=== PATIENT | male | born 1955 | race Caucasian/White ===

== ENCOUNTER 2020-06-17 09:09 | Outpatient (CLI) | payer OTHER, SELFPAY ==
[2020-06-17 09:31] LABS: Hematocrit 40.9 % (42.0-52.0); Mean Corpuscular HGB Conc 34.2 g/dl (32-36); Mean Corpuscular Hemoglobin 31.1 pg (26-34); Mean Corpuscular Volume 90.9 fl (80-100); Mean Platelet Volume 9.7 fl (7.4-10.4); Platelet Count Result 187 k/mm3 (150-375); Red Cell Distribution Width 12.7 % (11.5-14.5); White Blood Count 5.4 K/mm3 (4.5-10.0)
[2020-06-17 09:48] LABS: Alanine Aminotransferase 28 U/L (4-50); Albumin Level 4.4 g/dL (3.5-5.1); Alkaline Phosphatase 98 U/L (38-126); Aspartate Amino Transferase 36 U/L (17-59); Bilirubin,Total 0.4 mg/dL (0.2-1.3); Blood Urea Nitrogen 19 mg/dL (9-20); CRP < 0.5 mg/dL (<1.0); Calcium 9.5 mg/dL (8.4-10.2); Carbon Dioxide 26 mmol/L (22-30); Chloride 104 mmol/L (98-107); Estimated Glomerular Filt Rate > 60; Glucose 120 mg/dL (75-110); Potassium 4.4 mmol/L (3.4-5.0); Sodium 138 mmol/L (137-145)
[2020-06-17 10:30] LABS: Erythrocyte Sedimentation Rate 20 mm/hr (0-20)
== END 2020-06-17 09:10 | disposition home or self-care (01) ==
LOC: ANHLAB 09:14
PROVIDERS: Visit Provider Internal Medicine Gastroenterology
DX: K63.89 Other specified diseases of intestine (principal)
CPT/HCPCS: 36415; 80053; 85027; 85652; 86140

== ENCOUNTER 2020-07-20 00:16 | Outpatient (CLI) | payer OTHER, SELFPAY ==
[2020-07-20 19:30] LABS: SARS-CoV-2 RNA PCR Negative
== END 2020-07-20 00:17 | disposition home or self-care (01) ==
LOC: ANHCOVIDDT 00:17
PROVIDERS: Visit Provider Internal Medicine Gastroenterology
DX: Z01.812 Encounter for preprocedural laboratory examination (principal); Z20.828 Contact with and (suspected) exposure to other viral communicable diseases
CPT/HCPCS: 87635; C9803; U0003

== ENCOUNTER 2020-07-23 01:02 | Day surgery (SDC) | payer OTHER, SELFPAY ==
[2020-07-12 14:33] VITALS: BMI 28.8
[2020-07-23 10:17] VITALS: BP 154/91; PULSE 74; RESP 18; TEMP 36.5; O2SAT 97
[2020-07-23] MEDS: LACTATED RINGERS 1,000 ML 150 ML IV CONT (10:30)
--- NOTE | 2020-07-23 10:41 | P.PNAN_ITS ---
Anes - Initial Pre Proc Eval Procedure: Operation Date: 07/23/20 11:45 Proposed Procedures p Colonoscopy - Teddy Rodriguez MD Date/Time: 07/23/20 10:41 Surgeon: Teddy Rodriguez MD Pre Op Diagnosis: colitis Patient Data Age: 64 Gender: M Height: 5 ft 10 in Weight: 88.1 kg Last Vital Signs Temp 97.7 F 07/23/20 10:17 Pulse 74 07/23/20 10:17 Resp 18 07/23/20 10:17 BP 154/91 H 07/23/20 10:17 Pulse Ox 97 07/23/20 10:17 Allergies Allergy/AdvReac Type Severity Reaction Status Date / Time No Known Allergies Allergy Verified 07/23/20 10:10 Home Medications Medication Instructions Recorded Confirmed Type cetirizine 10 mg capsule 10 mg PO DAILY 05/23/20 07/23/20 History mesalamine [Lialda] 1.2 g PO 07/12/20 History mesalamine [Lialda] 1.2 g PO DAILY 07/12/20 07/12/20 History pravastatin 20 mg PO DAILY 07/12/20 07/12/20 History Patient hx anesthesia problems: none Family hx anesthesia problems: none [facility] Past Medical History Medical History (Updated 06/17/20 @ 08:56 by Teddy Rodriguez MD) Colon polyp Elevated blood-pressure reading, without diagnosis of hypertension Elevated glucose Hyperlipemia Left sided ulcerative (chronic) colitis Proctosigmoiditis Social History Social History Gender identity (if verbalized by the patient): Male Anes - Eval Final PreProcedure Day of Procedure 07/23/20 10:41 Patient weight: normal Heart: regular rate and rhythm Lungs: clear to auscultation Airway: Mallampati scale class II Neurological: alert and oriented Last oral intake: >/= 8 hours ASA classification: II Emergent: no Anesthetic plan: proceed Anesthesia type and monitoring: general and standard monitoring Informed Consent: The patient's anesthetic plan and its attendant risks and benefits were discussed with the patient/family/POA. Questions were solicited and answers provided to the satisfaction of the patient/family/POA.
--- NOTE | 2020-07-23 11:23 | PM.HPGS ---
History of Present Illness History of Present Illness Consent: Risks, benefits, and alternatives have been discussed and questions answered. Patient agrees to proceed with procedure. Chief complaint: colitis Narrative: Justus Rivera is a 64 year old male with proctosigmoiditis controlled with lialda, last colonoscopy 2018 Review of Systems Constitutional: Constitutional: Denies headache(s) and Denies weakness Eyes: Eyes: Denies blurry vision ENT: Reports Normal hearing present, Denies headache(s) and Denies neck pain Cardiovascular: Cardiovascular: Denies chest pain and Denies dyspnea Respiratory: Respiratory: Denies dyspnea Gastrointestinal: Gastrointestinal: Reports no additional gastrointestinal complaints Genitourinary: Genitourinary: Denies dysuria Musculoskeletal: Musculoskeletal: Denies neck pain Integumentary/Breasts: Skin/Breast: Denies dry skin Neurologic: Reports Normal hearing present, Denies headache(s) and Denies weakness Psychiatric: Psychiatric: Denies anxiety Endocrine: Endocrine: Denies change in body appearance Hematologic/Lymphatic: Hematologic/Lymphatic: Denies easy bleeding Allergic/Immunologic: Allergic/Immunologic: Denies urticaria PMFSH Past Medical History Medical History (Updated 06/17/20 @ 08:56 by Teddy Rodriguez MD) Colon polyp Elevated blood-pressure reading, without diagnosis of hypertension Elevated glucose Hyperlipemia Left sided ulcerative (chronic) colitis Proctosigmoiditis Social History Social History Gender identity (if verbalized by the patient): Male Meds Home Medications and Allergies Home Medications Medication Instructions Recorded Confirmed Type cetirizine 10 mg capsule 10 mg PO DAILY 05/23/20 07/23/20 History mesalamine [Lialda] 1.2 g PO 07/12/20 History mesalamine [Lialda] 1.2 g PO DAILY 07/12/20 07/12/20 History pravastatin 20 mg PO DAILY 07/12/20 07/12/20 History Allergies Allergy/AdvReac Type Severity Reaction Status Date / Time No Known Allergies Allergy Verified 07/23/20 10:10 Vital Signs Vital Signs - 24 hr 07/23/20 10:17 Temperature 97.7 F Pulse Rate 74 Respiratory Rate 18 Blood Pressure 154/91 H Pulse Oximetry 97 Exam Const: General: comfortable and no acute distress HENMT: General nose exam: Normal nares present Eyes: General: appearance normal, both eyes and all related structures Neck: Neck: no JVD Resp: Auscultation: clear to auscultation bilaterally Cardio: Rate: regular rate Rhythm: regular rhythm GI: Inspection: non-distended GI Palp: Yes Soft to palpation Skin: General skin exam: normal color Neuro: General: gait normal Speech: normal speech Extrem: General: normal to inspection Psych: Mental Status: mental status grossly normal Assessment and Plan Assessment and plan (1) Proctosigmoiditis: Code(s): K63.89 - Other specified diseases of intestine Status: Acute Assessment and Plan: will assess again with colonoscopy
[2020-07-23 11:45] VITALS: BP 97/57; PULSE 54; RESP 14; O2SAT 95
[2020-07-23 11:55] VITALS: BP 99/59; PULSE 54; RESP 14; O2SAT 98
[2020-07-23 12:05] VITALS: BP 108/59; PULSE 57; RESP 13; O2SAT 100
== END 2020-07-23 12:17 | disposition home or self-care (01) ==
PROVIDERS: PCP Family Medicine; Visit Provider Internal Medicine Gastroenterology
PROC: 0DJD8ZZ Inspection of Lower Intestinal Tract, Via Natural or Artificial Opening Endoscopic (ICD-10-PCS; CPT 45378; principal; 2020-07-23 11:45)
DX: K63.89 Other specified diseases of intestine (principal); E78.5 Hyperlipidemia, unspecified; K64.8 Other hemorrhoids; Z86.010 Personal history of colon polyps
CPT/HCPCS: 45378; J2704; J7120

== ENCOUNTER 2020-12-23 10:37 | Outpatient (CLI) | payer OTHER, SELFPAY ==
[2020-12-23 10:57] LABS: Hematocrit 41.4 % (42.0-52.0); Hemoglobin 13.7 g/dL (14.0-18.0); Mean Corpuscular HGB Conc 33.1 g/dl (32-36); Mean Corpuscular Hemoglobin 30.9 pg (26-34); Mean Corpuscular Volume 93.2 fl (80-100); Mean Platelet Volume 9.4 fl (7.4-10.4); Platelet Count Result 189 k/mm3 (150-375); Red Blood Count 4.44 M/mm3 (4.6-6.20); Red Cell Distribution Width 12.8 % (11.5-14.5); White Blood Count 6.3 K/mm3 (4.5-10.0)
[2020-12-23 11:11] LABS: Alanine Aminotransferase 38 U/L (4-50); Albumin Level 4.5 g/dL (3.5-5.1); Alkaline Phosphatase 101 U/L (38-126); Anion Gap 7 mmol/L (8-16); Aspartate Amino Transferase 44 U/L (17-59); Bilirubin,Total 0.4 mg/dL (0.2-1.3); Blood Urea Nitrogen 15 mg/dL (9-20); CRP < 0.5 mg/dL (<1.0); Calcium 9.4 mg/dL (8.4-10.2); Carbon Dioxide 31 mmol/L (22-30); Chloride 102 mmol/L (98-107); Estimated Glomerular Filt Rate > 60; Glucose 114 mg/dL (75-110); Potassium 4.2 mmol/L (3.4-5.0); Sodium 140 mmol/L (137-145)
[2020-12-23 11:20] LABS: Erythrocyte Sedimentation Rate 25 mm/hr (0-20)
== END 2020-12-23 10:38 | disposition home or self-care (01) ==
PROVIDERS: PCP Family Medicine; Visit Provider Nurse Practitioner Family
DX: K63.89 Other specified diseases of intestine (principal)
CPT/HCPCS: 36415; 80053; 85027; 85652; 86140

== ENCOUNTER 2020-12-25 14:07 | Outpatient (CLI) | payer OTHER, SELFPAY ==
[2021-01-01 20:51] LABS: Calprotectin, Stool 1020 mcg/g
== END 2020-12-25 14:08 | disposition home or self-care (01) ==
PROVIDERS: PCP Family Medicine; Visit Provider Nurse Practitioner Family
DX: K63.89 Other specified diseases of intestine (principal)
CPT/HCPCS: 83993; 87045; 87046; 87324; 87427

== ENCOUNTER 2021-09-01 09:43 | Outpatient (CLI) | payer OTHER, SELFPAY ==
[2021-09-01 10:12] LABS: Hematocrit 42.8 % (42.0-52.0); Hemoglobin 14.3 g/dL (14.0-18.0); Mean Corpuscular HGB Conc 33.4 g/dl (32-36); Mean Corpuscular Hemoglobin 31.8 pg (26-34); Mean Corpuscular Volume 95.1 fl (80-100); Mean Platelet Volume 9.8 fl (7.4-10.4); Platelet Count Result 209 k/mm3 (150-375); Red Cell Distribution Width 13.2 % (11.5-14.5); White Blood Count 5.6 K/mm3 (4.5-10.0)
[2021-09-01 10:13] LABS: Alanine Aminotransferase 26 U/L (4-50); Albumin Level 4.9 g/dL (3.5-5.1); Alkaline Phosphatase 103 U/L (38-126); Anion Gap 8 mmol/L (8-16); Aspartate Amino Transferase 33 U/L (17-59); Bilirubin,Total 0.4 mg/dL (0.2-1.3); Blood Urea Nitrogen 18 mg/dL (9-20); Calcium 9.6 mg/dL (8.4-10.2); Carbon Dioxide 29 mmol/L (22-30); Chloride 104 mmol/L (98-107); Estimated Glomerular Filt Rate > 60; Glucose 118 mg/dL (65-110); Potassium 4.5 mmol/L (3.4-5.0); Sodium 141 mmol/L (137-145)
== END 2021-09-01 09:44 | disposition home or self-care (01) ==
PROVIDERS: Visit Provider Nurse Practitioner Family
DX: K51.50 Left sided colitis without complications (principal)
CPT/HCPCS: 36415; 80053; 85027

== ENCOUNTER 2022-09-21 09:53 | Outpatient (CLI) | payer OTHER, SELFPAY ==
[2022-09-21 10:44] LABS: Hematocrit 41.5 % (42.0-52.0); Hemoglobin 13.7 g/dL (14.0-18.0); Mean Corpuscular Hemoglobin 30.7 pg (26-34); Mean Platelet Volume 9.4 fl (7.4-10.4); Platelet Count Result 266 k/mm3 (150-375); Red Blood Count 4.46 M/mm3 (4.6-6.20); Red Cell Distribution Width 12.9 % (11.5-14.5); White Blood Count 8.4 K/mm3 (4.5-10.0)
[2022-09-21 11:02] LABS: Alanine Aminotransferase 28 U/L (6-50); Albumin Level 4.9 g/dL (3.5-5.1); Alkaline Phosphatase 145 U/L (38-126); Anion Gap 13 mmol/L (8-16); Aspartate Amino Transferase 39 U/L (17-59); Bilirubin,Total 0.6 mg/dL (0.2-1.3); Blood Urea Nitrogen 26 mg/dL (9-20); CRP < 0.5 mg/dL (<1.0); Calcium 9.5 mg/dL (8.4-10.2); Carbon Dioxide 26 mmol/L (22-30); Chloride 99 mmol/L (98-107); Estimated Glomerular Filt Rate > 60; Glucose 105 mg/dL (65-110); Potassium 4.1 mmol/L (3.4-5.0); Sodium 138 mmol/L (137-145)
[2022-09-21 12:58] LABS: Erythrocyte Sedimentation Rate 22 mm/hr (0-20)
== END 2022-09-21 09:54 | disposition home or self-care (01) ==
LOC: ANHLAB 09:56
PROVIDERS: PCP Family Medicine; Visit Provider Nurse Practitioner Family
DX: R19.7 Diarrhea, unspecified (principal); K51.50 Left sided colitis without complications
CPT/HCPCS: 36415; 80053; 85027; 85652; 86140

== ENCOUNTER 2022-09-22 13:06 | Outpatient (CLI) | payer OTHER, SELFPAY ==
[2022-09-22 15:28] LABS: Toxigenic C. Diff NEGATIVE (NEGATIVE)
[2022-10-01 00:47] LABS: Calprotectin, Stool 4950 mcg/g
== END 2022-09-22 13:07 | disposition home or self-care (01) ==
LOC: ANHLAB 13:08
PROVIDERS: PCP Family Medicine; Visit Provider Nurse Practitioner Family
DX: R19.7 Diarrhea, unspecified (principal); K51.50 Left sided colitis without complications
CPT/HCPCS: 83993; 87493

== ENCOUNTER 2023-08-09 05:55 | Day surgery (SDC) | payer MEDICARE, SELFPAY ==
[2023-07-19 09:01] VITALS: BMI 27.5
[2023-08-09 06:20] VITALS: BP 129/83; PULSE 79; RESP 16; TEMP 36.6; O2SAT 100
--- NOTE | 2023-08-09 07:21 | P.PNAN_ITS ---
Anes - Initial Pre Proc Eval Procedure: Operation Date: 08/09/23 07:30 Proposed Procedures p Diagnostic Colonoscopy - Teddy Rodriguez MD Date/Time: 08/09/23 07:21 Surgeon: Teddy Rodriguez MD Pre Op Diagnosis: Other Specified Diseases of Intestines Patient Data Age: 67 Gender: M Height: 1.78 m Weight: 84 kg Allergies Allergy/AdvReac Type Severity Reaction Status Date / Time No Known Allergies Allergy Verified 08/09/23 06:19 Home Medications Medication Instructions Recorded Confirmed Type cetirizine 10 mg capsule (Zyrtec) 10 mg PO DAILY 05/23/20 08/09/23 History mesalamine 1,000 mg rectal 1 g RECTAL ONCE #30 ea 09/15/22 08/09/23 Rx suppository (Canasa) amlodipine 5 mg tablet 5 mg PO DAILY 09/21/22 08/09/23 History hydrochlorothiazide 12.5 mg capsule 12.5 mg PO DAILY 09/21/22 08/09/23 History mesalamine 1.2 gram tablet,delayed See Rx Instructions .Route 07/05/23 08/09/23 Rx release .COMPLEX #360 tabs pravastatin 20 mg tablet 20 mg PO DAILY 07/09/23 08/09/23 History multivitamin 1 tablet PO DAILY 07/21/23 08/09/23 History Patient hx anesthesia problems: none Family hx anesthesia problems: none Results Review: All pre-operative results and documents have been reviewed as part of the pre- operative evaluation. [facility] Past Medical History Medical History Colitis Colon polyp Elevated glucose Frequent loose stools Hyperlipemia Hypertension Left sided ulcerative (chronic) colitis Overweight (BMI 25.0-29.9) Proctosigmoiditis Surgical History Surgical History (Updated 08/09/23 @ 07:22 by Pravin Rangel MD) H/O colonoscopy Social History Social History Smoking status: Former smoker Tobacco type: cigarettes Alcohol intake: current Drinks per week: 2 Alcohol use details: couple drinks a month Substance use: never Substance use type: does not use Living arrangements: with family Gender identity (if verbalized by the patient): Male Spiritual care concerns: No Anes - Eval Final PreProcedure Day of Procedure 08/09/23 07:21 Patient weight: overweight Heart: regular rate and rhythm Lungs: clear to auscultation Airway: Mallampati scale class II Neurological: alert and oriented Last oral intake: >/= 8 hours ASA classification: II Emergent: no Anesthetic plan: proceed Anesthesia type and monitoring: general GIVS and standard monitoring Results Review: All pre-operative results and documents have been reviewed as part of the pre- operative evaluation. Informed Consent: The patient's anesthetic plan and its attendant risks and benefits were discussed with the patient/family/POA. Questions were solicited and answers provided to the satisfaction of the patient/family/POA.
[2023-08-09] MEDS: LACTATED RINGERS 1,000 ML 150 ML IV CONT (07:28)
--- NOTE | 2023-08-09 07:29 | PM.HPGS ---
History of Present Illness History of Present Illness Consent: Risks, benefits, and alternatives have been discussed and questions answered. Patient agrees to proceed with procedure. Chief complaint: Other Specified Diseases of Intestines Narrative: Justus Rivera is a 67 year old male with left sided UC since 2011 never on biologics, using mesalamine oral and supp, last round of steroids several months ago. His last colonoscopy was 06/2020 with only minimal erythema in the rectum, up to 5 cm from anal verge without erosions or exudates Review of Systems Constitutional: Constitutional: Denies headache(s) and Denies weakness Eyes: Eyes: Denies blurry vision ENT: Reports Normal hearing present, Denies headache(s) and Denies neck pain Cardiovascular: Cardiovascular: Denies chest pain and Denies dyspnea Respiratory: Respiratory: Denies dyspnea Gastrointestinal: Gastrointestinal: Reports no additional gastrointestinal complaints Genitourinary: Genitourinary: Denies dysuria Musculoskeletal: Musculoskeletal: Denies neck pain Integumentary/Breasts: Skin/Breast: Denies dry skin Neurologic: Reports Normal hearing present, Denies headache(s) and Denies weakness Psychiatric: Psychiatric: Denies anxiety Endocrine: Endocrine: Denies change in body appearance Hematologic/Lymphatic: Hematologic/Lymphatic: Denies easy bleeding Allergic/Immunologic: Allergic/Immunologic: Denies urticaria PMFSH Past Medical History Medical History Colitis Colon polyp Elevated glucose Frequent loose stools Hyperlipemia Hypertension Left sided ulcerative (chronic) colitis Overweight (BMI 25.0-29.9) Proctosigmoiditis Surgical History Surgical History (Updated 08/09/23 @ 07:22 by Pravin Rangel MD) H/O colonoscopy Social History Social History Smoking status: Former smoker Tobacco type: cigarettes Alcohol intake: current Drinks per week: 2 Alcohol use details: couple drinks a month Substance use: never Substance use type: does not use Living arrangements: with family Gender identity (if verbalized by the patient): Male Spiritual care concerns: No Meds Home Medications and Allergies Home Medications Medication Instructions Recorded Confirmed Type cetirizine 10 mg capsule (Zyrtec) 10 mg PO DAILY 05/23/20 08/09/23 History mesalamine 1,000 mg rectal 1 g RECTAL ONCE #30 ea 09/15/22 08/09/23 Rx suppository (Canasa) amlodipine 5 mg tablet 5 mg PO DAILY 09/21/22 08/09/23 History hydrochlorothiazide 12.5 mg capsule 12.5 mg PO DAILY 09/21/22 08/09/23 History mesalamine 1.2 gram tablet,delayed See Rx Instructions .Route 07/05/23 08/09/23 Rx release .COMPLEX #360 tabs pravastatin 20 mg tablet 20 mg PO DAILY 07/09/23 08/09/23 History multivitamin 1 tablet PO DAILY 07/21/23 08/09/23 History Allergies Allergy/AdvReac Type Severity Reaction Status Date / Time No Known Allergies Allergy Verified 08/09/23 06:19 Vital Signs Vital Signs - 24 hr 08/09/23 06:20 Temperature 97.9 F Pulse Rate 79 Respiratory Rate 16 Blood Pressure 129/83 Pulse Oximetry 100 Oxygen Delivery Room Air Exam Const: General: comfortable and no acute distress HENMT: Face/Nose/Sinus: Normal nares present Eyes: General: appearance normal, both eyes and all related structures Neck: Neck: no JVD Resp: Auscultation: clear to auscultation bilaterally Cardio: Rate: regular rate Rhythm: regular rhythm GI: Inspection: non-distended GI Palp: Yes Soft to palpation Skin: General skin exam: normal color Neuro: General: gait normal Speech: normal speech Extrem: General: normal to inspection Psych: Mental Status: mental status grossly normal Assessment and Plan Assessment and plan (1) Left sided ulcerative (chronic) colitis: Code(s): K51.50 - Left sided colitis without complications Sta
[2023-08-09 07:50] VITALS: BP 102/82; PULSE 62; RESP 16; O2SAT 98
[2023-08-09 08:00] VITALS: BP 111/69; PULSE 67; RESP 18; O2SAT 98
[2023-08-09 08:10] VITALS: BP 107/83; PULSE 71; RESP 18; O2SAT 99
--- NOTE | 2023-08-09 08:12 | WPDANESPN ---
Anes - Prog Note Post-Op Date/Time: 08/09/23 08:12 Cardiovascular status: normal Respiratory status: normal Airway patency: baseline Mental status: baseline Post-Op hydration status: normal Vital Signs: Last Vital Signs Temp 36.6 C 08/09/23 06:20 Pulse 62 08/09/23 07:50 Resp 16 08/09/23 07:50 BP 102/82 08/09/23 07:50 Pulse Ox 98 08/09/23 07:50 O2 Del Method Room Air 08/09/23 07:50 Pain Score (VAS): 0/10 I/O: Intake & Output 08/08/23 08/09/23 08/09/23 23:59 07:59 15:59 Intake Total 400 Balance 400 Patient Feedback: Patient satisfied with anesthetic care.
== END 2023-08-09 08:21 | disposition home or self-care (01) ==
PROVIDERS: Visit Provider Internal Medicine Gastroenterology
PROC: 0DJD8ZZ Inspection of Lower Intestinal Tract, Via Natural or Artificial Opening Endoscopic (ICD-10-PCS; CPT 45378; principal; 2023-08-09 07:30)
DX: Z12.11 Encounter for screening for malignant neoplasm of colon (principal); K64.5 Perianal venous thrombosis
CPT/HCPCS: 45380

== ENCOUNTER 2023-08-09 08:00 | Outpatient (NON) | payer MEDICARE, SELFPAY | END 2023-08-09 08:01 | disposition home or self-care (01) | LOC: ANHLAB 08-10 09:26 | PROVIDERS: Visit Provider Internal Medicine Gastroenterology | DX: K51.50 Left sided colitis without complications (principal) | CPT/HCPCS: 88305 ==

== ENCOUNTER 2023-12-01 12:07 | Outpatient (CLI) | payer MEDICARE, SELFPAY ==
[2023-12-01 12:44] LABS: Hematocrit 42.2 % (42.0-52.0); Hemoglobin 13.7 g/dL (14.0-18.0); Mean Corpuscular HGB Conc 32.5 g/dl (32-36); Mean Corpuscular Hemoglobin 30.4 pg (26-34); Mean Corpuscular Volume 93.6 fl (80-100); Mean Platelet Volume 9.7 fl (7.4-10.4); Platelet Count Result 179 k/mm3 (150-375); Red Blood Count 4.51 M/mm3 (4.6-6.20); Red Cell Distribution Width 13.1 % (11.5-14.5); White Blood Count 4.8 K/mm3 (4.5-10.0)
[2023-12-01 13:03] LABS: Alanine Aminotransferase 29 U/L (6-50); Albumin Level 4.7 g/dL (3.5-5.1); Alkaline Phosphatase 98 U/L (38-126); Anion Gap 10 mmol/L (8-16); Aspartate Amino Transferase 35 U/L (17-59); Bilirubin,Total 0.5 mg/dL (0.2-1.3); Blood Urea Nitrogen 24 mg/dL (9-20); CRP < 0.5 mg/dL (<1.0); Calcium 9.4 mg/dL (8.4-10.2); Carbon Dioxide 28 mmol/L (22-30); Chloride 102 mmol/L (98-107); Estimated Glomerular Filt Rate > 60; Glucose 104 mg/dL (65-110); Potassium 4.3 mmol/L (3.4-5.0); Sodium 140 mmol/L (137-145)
[2023-12-01 13:28] LABS: Erythrocyte Sedimentation Rate 22 mm/hr (0-20)
== END 2023-12-01 12:08 | disposition home or self-care (01) ==
PROVIDERS: PCP Family Medicine; Visit Provider Nurse Practitioner Family
DX: K51.50 Left sided colitis without complications (principal)
CPT/HCPCS: 36415; 80053; 85027; 85652; 86140

== ENCOUNTER 2024-02-03 11:37 | Outpatient (CLI) | payer MEDICARE, SELFPAY ==
[2024-02-03 11:58] LABS: Hematocrit 41.5 % (42.0-52.0); Hemoglobin 13.8 g/dL (14.0-18.0); Mean Corpuscular HGB Conc 33.3 g/dl (32-36); Mean Corpuscular Hemoglobin 30.8 pg (26-34); Mean Corpuscular Volume 92.6 fl (80-100); Mean Platelet Volume 9.4 fl (7.4-10.4); Platelet Count Result 180 k/mm3 (150-375); Red Blood Count 4.48 M/mm3 (4.6-6.20); Red Cell Distribution Width 12.9 % (11.5-14.5); White Blood Count 5.1 K/mm3 (4.5-10.0)
[2024-02-03 12:16] LABS: Alanine Aminotransferase 32 U/L (6-50); Albumin Level 4.8 g/dL (3.5-5.1); Alkaline Phosphatase 107 U/L (38-126); Anion Gap 5 mmol/L (8-16); Aspartate Amino Transferase 42 U/L (17-59); Bilirubin,Total 0.7 mg/dL (0.2-1.3); Blood Urea Nitrogen 21 mg/dL (9-20); CRP < 0.5 mg/dL (<1.0); Calcium 9.6 mg/dL (8.4-10.2); Carbon Dioxide 31 mmol/L (22-30); Chloride 104 mmol/L (98-107); Estimated Glomerular Filt Rate > 60; Glucose 104 mg/dL (65-110); Potassium 4.1 mmol/L (3.4-5.0); Sodium 140 mmol/L (137-145)
[2024-02-03 12:35] LABS: Erythrocyte Sedimentation Rate 21 mm/hr (0-20)
== END 2024-02-03 11:38 | disposition home or self-care (01) ==
LOC: ANHLAB 11:40
PROVIDERS: Visit Provider Nurse Practitioner
DX: K51.50 Left sided colitis without complications (principal)
CPT/HCPCS: 36415; 80053; 85027; 85652; 86140

== ENCOUNTER 2024-02-04 10:26 | Outpatient (CLI) | payer MEDICARE, SELFPAY ==
[2024-02-11 03:16] LABS: Calprotectin, Stool 241 mcg/g
== END 2024-02-04 10:27 | disposition home or self-care (01) ==
LOC: ANHLAB 10:28
PROVIDERS: Visit Provider Nurse Practitioner
DX: K51.50 Left sided colitis without complications (principal)
CPT/HCPCS: 83993

== ENCOUNTER 2024-08-17 11:52 | Outpatient (CLI) | payer MEDICARE, SELFPAY ==
[2024-08-17 12:39] LABS: Hematocrit 44.4 % (42.0-52.0); Hemoglobin 14.5 g/dL (14.0-18.0); Mean Corpuscular HGB Conc 32.7 g/dl (32-36); Mean Corpuscular Hemoglobin 30.4 pg (26-34); Mean Corpuscular Volume 93.1 fl (80-100); Mean Platelet Volume 9.9 fl (7.4-10.4); Platelet Count Result 190 k/mm3 (150-375); Red Blood Count 4.77 M/mm3 (4.6-6.20); Red Cell Distribution Width 13.1 % (11.5-14.5); White Blood Count 4.8 K/mm3 (4.5-10.0)
[2024-08-17 12:53] LABS: Alanine Aminotransferase 25 U/L (6-50); Albumin Level 5.1 g/dL (3.5-5.1); Alkaline Phosphatase 101 U/L (38-126); Anion Gap 10 mmol/L (4-12); Aspartate Amino Transferase 36 U/L (17-59); Bilirubin,Total 0.6 mg/dL (0.2-1.3); Blood Urea Nitrogen 23 mg/dL (9-20); CRP 0.5 mg/dL (<1.0); Calcium 9.6 mg/dL (8.4-10.2); Carbon Dioxide 29 mmol/L (22-30); Chloride 95 mmol/L (98-107); Estimated Glomerular Filt Rate > 60; Glucose 107 mg/dL (65-110); Potassium 4.3 mmol/L (3.4-5.0); Sodium 134 mmol/L (137-145)
[2024-08-17 13:19] LABS: Erythrocyte Sedimentation Rate 14 mm/hr (0-20)
[2024-08-17 13:23] LABS: Iron 109 ug/dL (49-181)
[2024-08-17 13:33] LABS: Percent Iron Saturation 31 % (20-50)
[2024-08-17 20:14] LABS: Folic Acid > 20.0 ng/mL (2.76->20)
== END 2024-08-17 11:53 | disposition home or self-care (01) ==
LOC: ANHLAB 11:57
PROVIDERS: Visit Provider Nurse Practitioner
DX: K51.50 Left sided colitis without complications (principal)
CPT/HCPCS: 36415; 80053; 82607; 82728; 82746; 83540; 83550; 85027; 85652; 86140

== ENCOUNTER 2024-08-18 09:57 | Outpatient (CLI) | payer MEDICARE, SELFPAY ==
[2024-08-25 18:52] LABS: Calprotectin, Stool 123 mcg/g
== END 2024-08-18 09:58 | disposition home or self-care (01) ==
LOC: ANHLAB 09:58
PROVIDERS: Visit Provider Nurse Practitioner
DX: K51.50 Left sided colitis without complications (principal)
CPT/HCPCS: 83993

== ENCOUNTER 2025-02-14 10:04 | Outpatient (CLI) | payer MEDICARE, SELFPAY ==
[2025-02-14 11:06] LABS: Alanine Aminotransferase 32 U/L (6-50); Albumin Level 4.9 g/dL (3.5-5.1); Alkaline Phosphatase 108 U/L (38-126); Anion Gap 11 mmol/L (4-12); Aspartate Amino Transferase 41 U/L (17-59); Bilirubin,Total 0.6 mg/dL (0.2-1.3); Blood Urea Nitrogen 31 mg/dL (9-20); CRP 0.8 mg/dL (<1.0); Calcium 9.6 mg/dL (8.4-10.2); Carbon Dioxide 29 mmol/L (22-30); Chloride 100 mmol/L (98-107); Estimated Glomerular Filt Rate > 60; Glucose 111 mg/dL (65-110); Potassium 4.7 mmol/L (3.4-5.0); Sodium 140 mmol/L (137-145)
--- OUTSIDE RECORDS SUMMARY | 2025-02-14 11:25 | XMS_ITS | Clinical Summary ---
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 Role Phone Unavailable Primary Care Provider Unavailabl e Social History Tobacco Use Types Packs/Day Years Used Date Smoking Tobacco: Never Assessed Sex and Gender Information Value Date Recorded Sex Assigned at Not on file Legal Sex Male 9:12 PM [employer] Gender Identity Not on file Sexual Orientation Not on file Plan of Treatment Health Maintenance Due Date Last Done Comments Colorectal Cancer Screening Colonoscopy (10 Years) 1955 Hepatitis C 1973 DTaP, Tdap and Td Vaccines ( 1 - Tdap) 1974 Zoster Vaccines (1 of 2) 2005 Pneumococcal Vaccine: 65+ Ye ars (1 of 1 - PCV) 2020 COVID-19 Vaccine ( - 2023-2 5 season) 2024 Influenza Adult (#1) 2024 RSV Immunization or 60+ Years (1 - 1-dose 75+ series) 2030 Meningococcal B Vaccine Aged Out No l onger eligible based on patient's age to complete this topic Meningococcal Vaccine Aged Out No kayden jagruti eligible based on patient's age to complete this topic RSV Immunizations Under 20 Months Aged Out No longer eligible based on patient's age to complete this topic
[2025-02-14 11:34] LABS: Erythrocyte Sedimentation Rate 19 mm/hr (0-20)
== END 2025-02-14 10:05 | disposition home or self-care (01) ==
LOC: ANHLAB 10:06
PROVIDERS: Visit Provider Nurse Practitioner
DX: K51.50 Left sided colitis without complications (principal)
CPT/HCPCS: 36415; 80053; 85652; 86140

== ENCOUNTER 2025-02-15 09:46 | Outpatient (CLI) | payer MEDICARE, SELFPAY ==
--- OUTSIDE RECORDS SUMMARY | 2025-02-15 10:16 | XMS_ITS | Clinical Summary ---
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
== END 2025-02-15 09:47 | disposition home or self-care (01) ==
LOC: ANHLAB 09:46
PROVIDERS: Visit Provider Nurse Practitioner
DX: K51.50 Left sided colitis without complications (principal)
CPT/HCPCS: 83993

== ENCOUNTER 2025-08-14 10:01 | Outpatient (CLI) | payer MEDICARE, SELFPAY ==
[2025-08-14 10:16] LABS: Hematocrit 41.3 % (37.0-46.0); Hemoglobin 13.7 g/dL (12.4-15.3); Mean Corpuscular HGB Conc 33.2 g/dL (32-36); Mean Corpuscular Hemoglobin 30.6 pg (27.0-31.0); Mean Corpuscular Volume 92.2 fL (78.0-102.0); Platelet Count Result 161 K/mm3 (150-420); Red Blood Count 4.48 M/mm3 (4.70-6.10); White Blood Count 4.8 K/mm3 (4.8-10.8)
[2025-08-14 10:49] LABS: Iron 107 ug/dL (49-181)
[2025-08-14 10:53] LABS: Alanine Aminotransferase 32 U/L (6-50); Albumin Level 4.8 g/dL (3.5-5.1); Alkaline Phosphatase 120 U/L (38-126); Anion Gap 11 mmol/L (4-12); Aspartate Amino Transferase 41 U/L (17-59); Bilirubin,Total 0.6 mg/dL (0.2-1.3); Blood Urea Nitrogen 21 mg/dL (9-20); CRP 0.6 mg/dL (<1.0); Calcium 9.7 mg/dL (8.4-10.2); Carbon Dioxide 30 mmol/L (22-30); Chloride 102 mmol/L (98-107); Estimated Glomerular Filt Rate > 60; Glucose 103 mg/dL (65-110); Osmolality Calculated 299 mOsm/kg (285-295); Potassium 4.5 mmol/L (3.4-5.0); Sodium 143 mmol/L (137-145); Total Protein 9.7 g/dL (6.3-8.2)
[2025-08-14 10:59] LABS: Percent Iron Saturation 31 % (20-50)
[2025-08-14 11:25] LABS: Ferritin 74.60 ng/mL (11.1-264)
--- OUTSIDE RECORDS SUMMARY | 2025-08-14 11:34 | XMS_ITS | Clinical Summary ---
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
[2025-08-14 11:56] LABS: Vitamin B12 970.0 pg/mL (239-931)
== END 2025-08-14 10:02 | disposition home or self-care (01) ==
LOC: CHSLAB 10:02
PROVIDERS: PCP Nurse Practitioner; Visit Provider Nurse Practitioner
DX: Z79.899 Other long term (current) drug therapy (principal); K51.50 Left sided colitis without complications
CPT/HCPCS: 36415; 80053; 82306; 82607; 82728; 82746; 83540; 83550; 85027; 85652; 86140

== ENCOUNTER 2025-08-15 10:28 | Outpatient (CLI) | payer MEDICARE, SELFPAY ==
[2025-08-17 00:07] LABS: Calprotectin, Fecal 54 ug/g (0-120)
== END 2025-08-15 10:29 | disposition home or self-care (01) ==
LOC: CHSLAB 10:29
PROVIDERS: PCP Registered Nurse; Visit Provider Nurse Practitioner
DX: K51.50 Left sided colitis without complications (principal)
CPT/HCPCS: 83993